=== PATIENT | male | born 1960 | race Caucasian/White ===

== ENCOUNTER 2023-06-03 17:05 | Emergency (ER) | payer OTHER ==
[~2023-06-03] VITALS: Ht 172.7 cm; Wt 77.1 kg
[2023-06-03 18:48] VITALS: BP 138/78; TEMP 98.1; O2SAT 98
== END 2023-06-03 18:49 | disposition home or self-care (01) ==
LOC: ER 17:21
DX: T18.2XXA Foreign body in stomach, initial encounter (principal); K21.9 Gastro-esophageal reflux disease without esophagitis; W44.8XXA Other foreign body entering into or through a natural orifice, initial encounter; Y93.89 Activity, other specified; Y92.89 Other specified places as the place of occurrence of the external cause; Y99.8 Other external cause status
CPT/HCPCS: 70360-TC; 71045-TC; 74018